=== PATIENT | male | born 1990 | race Two or more races ===

== ENCOUNTER 2018-10-22 14:59 | Day surgery (SDC) | payer OTHER ==
[~2018-10-22] VITALS: Ht 190.5 cm; Wt 104.3 kg
[2018-10-22] MEDS ORDERED: RANI-257 PO (15:10)
[2018-10-22] MEDS ORDERED: MONT10TA24 PO (15:10)
[2018-10-22] MEDS ORDERED: LORA10CA PO (15:10)
[2018-10-22] MEDS ORDERED: PROPOFOL 10 MG/ML 20ML VIAL IV ONE (15:23)
[2018-10-22] MEDS ORDERED: GLYCOPYRROLATE 0.2 MG/ML 5 ML VIAL ONE (15:23)
[2018-10-22] MEDS ORDERED: LIDOCAINE HCL-MPF 2% 5ML VIAL ONE (15:23)
[2018-10-22 15:24] VITALS: BP 131/72
[2018-10-22] MEDS ORDERED: SUCCINYLCHOLINE CHLORIDE 20 MG/ML 10 ML VIAL ONE (15:24)
[2018-10-22] MEDS ORDERED: FENTANYL CITRATE PF 50 MCG/1 ML 2ML VIAL ONE (15:32)
[2018-10-22 16:05] VITALS: BP 103/56
[2018-10-22 16:10] VITALS: BP 102/57
[2018-10-22 16:15] VITALS: BP 106/59
[2018-10-22 16:20] VITALS: BP 103/66
[2018-10-22 16:30] VITALS: BP 102/58
[2018-10-22] MEDS ORDERED: SODIUM CHLORIDE 0.9% 1000ML 1,000 ML IV ONE (16:55)
[2018-10-23] MEDS ORDERED: SUCCINYLCHOLINE 200MG/10ML SYR ONE (10:17)
[2018-10-23] MEDS ORDERED: ETOMIDATE 2 MG/ML 10 ML VIAL ONE (10:18)
== END 2018-10-22 16:35 ==
LOC: ENDO 14:59
PROVIDERS: ATTEND Internal Medicine
DX: K29.50 Unspecified chronic gastritis without bleeding (principal); K31.89 Other diseases of stomach and duodenum; K22.8 Other specified diseases of esophagus; J45.909 Unspecified asthma, uncomplicated; Z79.899 Other long term (current) drug therapy; Z68.41 Body mass index [BMI] 40.0-44.9, adult; Z80.0 Family history of malignant neoplasm of digestive organs
CPT/HCPCS: 43239; 88305; 91035; A4606; A4649; J0330; J2704; J3010; J3490 ×2; J7030

== ENCOUNTER 2019-12-01 22:38 | Emergency (ER) | payer OTHER ==
[~2019-12-01 22:38] MED LIST: LORA10CA PO; MONT10TA26 PO; RANI-379 PO
== END 2019-12-01 23:12 | disposition home or self-care (01) ==
LOC: EDH 22:38
DX: Z77.21 Contact with and (suspected) exposure to potentially hazardous body fluids (principal); J45.909 Unspecified asthma, uncomplicated; Z91.013 Allergy to seafood
CPT/HCPCS: 36415; 86701; 86704; 86706; 87390; 87520

== ENCOUNTER 2024-11-13 06:20 | Day surgery (SDC) | payer OTHER ==
[~2024-11-13] VITALS: Ht 190.5 cm; Wt 113.4 kg
[2024-11-13] MEDS ORDERED: proPOFol 10 MG/ML 20ML VIAL IV ONE ×2 (08:31→08:47)
[2024-11-13] MEDS ORDERED: FENTanyl CITRate PF 50 MCG/1 ML 2ML VIAL ONE (08:31)
[2024-11-13] MEDS ORDERED: GLYCOPYRROLATE 0.2 MG/ML 5 ML VIAL ONE (08:31)
[2024-11-13] MEDS ORDERED: ondanSETRON 4MG INJ ONE (08:32)
[2024-11-13] MEDS ORDERED: LIDOCAINE PF 100MG/5ML (2%) SYRINGE 5ML ONE (08:37)
== END 2024-11-13 09:40 ==
LOC: ENDO 06:20
PROVIDERS: ATTEND Internal Medicine
DX: Z12.11 Encounter for screening for malignant neoplasm of colon (principal); K63.5 Polyp of colon; K62.1 Rectal polyp; K64.0 First degree hemorrhoids; K31.9 Disease of stomach and duodenum, unspecified; K21.00 Gastro-esophageal reflux disease with esophagitis, without bleeding; K22.89 Other specified disease of esophagus; K31.89 Other diseases of stomach and duodenum; R12 Heartburn; Z80.0 Family history of malignant neoplasm of digestive organs
CPT/HCPCS: 45380; 43239; 88305; 88312; J3010; J2003; J2704 ×2; J2405; J3490; A4620; A4215 ×2; A4223; A4222; A4221; A4663; A4606